=== PATIENT | female | born 1980 | race Caucasian/White ===

== ENCOUNTER 2018-03-01 02:01 | Emergency (ER) | payer SELFPAY ==
[~2018-03-01] VITALS: Ht 160 cm; Wt 80.0 kg
[2018-03-01 02:04] VITALS: BP 190/103; PULSE 86; RESP 20; TEMP 98.2; O2SAT 99
[2018-03-01] MEDS ORDERED: SIMETHICONE SUSP DROPS 40 MG/0.6 ML 30 ML BTL PO ONE (02:30)
[2018-03-01] MEDS ORDERED: LIDOCAINE VISCOUS 2% SOLN 15 ML UDC PO ONE (02:30)
[2018-03-01] MEDS ORDERED: ALUMINUM/MAGNESIUM/SIMETH 30 ML CUP PO ONE (02:30)
[2018-03-01] MEDS ORDERED: GAVISUS2 PO (02:31)
--- NOTE | 2018-03-01 02:32 | PD ---
HPI Chief Complaint: Abdominal Pain Time Seen by Provider: 02:12 Travel History International Travel<30 days: No Contact w/Intl Traveler<30days: No Traveled to known affect area: No History of Present Illness HPI 37-year-old female arrives to the ER with a complaint of abdominal pain in the epigastrium and right upper quadrant. She reports a history of gallbladder stones and reports symptoms today to be consistent with prior episodes of the same. The pain is severe it started 2 hours ago. She states it happens about once a year. Normally with diet control she does not have any episodes such as this. Today she went to a cookout with fattening foods including pork and after eating it she became sick. No fever. No diarrhea. Nausea and vomiting is reported. Patient arrives and requests viscous lidocaine and Maalox and simethicone. She refuses IV blood work and imaging for fear of the cost due to her uninsured status. PFSH Past Medical History Diminished Hearing: No Gastrointestinal Disorders: Yes (gallbladder) Tetanus Vaccination: Unknown Influenza Vaccination: No ?: Not LMP: 02/14/2018 Past Surgical History Appendectomy: Yes Section: Yes Other Surgery: Yes (cyst on her buttock) Social History Alcohol Use: No Tobacco Use: Yes Substance Use: No Allergies-Medications (Allergen,Severity, Reaction): Coded Allergies: No Known Allergies (Unverified , 03/01/18) Reported Meds & Prescriptions Reported Meds & Active Scripts Active Gaviscon Extra Strength R Liq (Aluminum Hydroxide-Mag Carb Liq) 508-475 Mg/10 Ml Susp 10-20 Ml PO QID PRN 10 Days Maximum 80 mL/24 hrs. Review of Systems Except as stated in HPI: all other systems reviewed are Neg General / Constitutional: No: Fever, Chills Physical Exam Narrative GENERAL: 37-year-old female pleasant well-nourished well-developed moderate distress secondary to pain Vital Signs Date Time Temp Pulse Resp B/P (MAP) Pulse Ox O2 Delivery O2 Flow Rate FiO2 03/01/18 02:04 98.2 86 20 190/103 (132) 99 SKIN: Warm and dry. HEAD: Atraumatic. Normocephalic. EYES: Pupils equal and round. No scleral icterus. No injection or drainage. ENT: No nasal bleeding or discharge. Mucous membranes pink and moist. NECK: Trachea midline. No JVD. CARDIOVASCULAR: Regular rate and rhythm. RESPIRATORY: No accessory muscle use. Clear to auscultation. Breath sounds equal bilaterally. GASTROINTESTINAL: Soft. Tender to palpation epigastrium. Tenderness palpation right upper quadrant. MUSCULOSKELETAL: Extremities without clubbing, cyanosis, or edema. No obvious deformities. NEUROLOGICAL: Awake and alert. No obvious cranial nerve deficits. Motor grossly within normal limits. Five out of 5 muscle strength in the arms and legs. Normal speech. PSYCHIATRIC: Appropriate mood and affect; insight and judgment normal. Data Data Last Documented VS Vital Signs Date Time Temp Pulse Resp B/P (MAP) Pulse Ox O2 Delivery O2 Flow Rate FiO2 03/01/18 02:04 98.2 86 20 190/103 (132) 99 Orders Orders Al-Mag Hy-Si 40-40-4 Mg/Ml Liq (Mag-Al P (03/01/18 02:30) Lidocaine 2% Viscous (Xylocaine 2% Visco (03/01/18 02:30) Simethicone Liq (Drops) (Simethicone Liq (03/01/18 02:30) Ed Discharge Order (03/01/18 02:30) MDM Medical Decision Making Medical Screen Exam Complete: Yes Emergency Medical Condition: Yes Medical Record Reviewed: Yes Differential Diagnosis Constipation, Gastritis, Acute Cholecystitis, Biliary Colic, Pancreatitis, RIVERS , Hepatitis, Bowel Obstruction, Cystitis, Mesenteric Ischemia, AAA, Appendicitis , Renal Stone/Hydronephrosis, GERD, perforated viscous Narrative Course Somewhat unusual the patient requests viscous lidocaine Maalox and simethicone to treat gallbladder disease. This could be more keeping with gastritis. Today story could still nonetheless reflect a cholecystitis type event. The patient is reasonably well informed and responsible. She absolutely refuses a workup here. And she reports the cocktail mentioned in the HPI has been helpful in the past and it should not be withheld as the patient is in obvious distress. In keeping with her wishes will do further diagnostic evaluation and discharge the patient home. She does understand that today's presentation could reflect acute cholecystitis which if not treated could be fatal and the patient was told this and stated she knew that had a time. This scenario is considered within acceptable limits to discharge the patient with a plan to follow-up with general surgery as an outpatient in the near future for elective cholecystectomy. return precautions were discussed. The significant other is present and both verbalized understanding. Diagnosis Primary Impression: Abdominal pain Qualified Codes: R10.9 - Unspecified abdominal pain Referrals: Michael Odonnell MD Patient Assistance Program Med/Other Pt SpecificInfo: Prescription(s) given Scripts Aluminum Hydroxide-Mag Carb Liq (Gaviscon Extra Strength R Liq) 508-475 Mg/10 Ml Susp 10-20 ML PO QID Y for HEARTBURN for 10 Days, ML 0 Refills Maximum 80 mL/24 hrs. Prov: Jerrell Joyner MD 03/01/18 Disposition: 01 DISCHARGE HOME Condition: Stable Jerrell Joyner MD March 01, 2018 02:32
== END 2018-03-01 03:09 | disposition home or self-care (01) ==
LOC: NEPE 02:01
DX: R10.9 Unspecified abdominal pain (principal); R10.13 Epigastric pain; R10.11 Right upper quadrant pain; R11.2 Nausea with vomiting, unspecified; Z72.0 Tobacco use
CPT/HCPCS: 99283